=== PATIENT | male | born 1940 | race Caucasian/White ===

== ENCOUNTER 2016-03-23 16:14 | Emergency (ER) | payer MEDICARE, OTHER ==
[2016-03-23 16:40] LABS: BILIRUBIN,URINE NEGATIVE (NEGATIVE)
[2016-03-23 16:48] LABS: UA CHARGE (STRIP ONLY) YES; UR CULTURE IF IND NOT INDICATED
[2016-03-23] MEDS ORDERED: ONDANSETRON ODT 4 MG TABLET TL STA (17:11)
[2016-03-23] MEDS ORDERED: SODIUM CHLORIDE 0.9% 1,000 ML IV ONE (17:12)
[2016-03-23] MEDS ORDERED: ONDANSETRON 4 MG/2 ML VIAL ONE (17:16)
[2016-03-23] MEDS ORDERED: ONDANSETRON 4 MG/2 ML VIAL IVP STA (17:46)
[2016-03-23] MEDS ORDERED: DEXAMETHASONE 10 MG/ML VIAL PO STA (18:13)
[2016-03-23] MEDS ORDERED: AZITHROMYCIN 250 MG TABLET PO STA (18:14)
[2016-03-23 18:18] VITALS: BP 173/84
[2016-03-23] MEDS ORDERED: IBUPROFEN 800 MG TABLET PO STA (18:21)
[2016-03-23] MEDS ORDERED: IBUPROFEN 800 MG TABLET PO ONE (18:28)
[2016-03-23 18:39] LABS: BASOPHILS # (AUTO) 0.1 10^3/uL (0.0-0.1); BASOPHILS % (AUTO) 0.6 %; EOSINOPHILS # (AUTO) 0.2 10^3/uL (0.0-0.7); HCT - HEMATOCRIT 49.3 % (42.0-52.0); HGB - HEMOGLOBIN 16.8 g/dL (14.0-18.0); LYMPHOCYTES # (AUTO) 0.8 10^3/uL (1.5-3.5); LYMPHOCYTES % (AUTO) 7.8 %; MEAN CORPUSCULAR HEMOGLOBIN 30.8 pg (27.0-31.0); MEAN CORPUSCULAR HGB CONC 34.2 g/dL (32.0-36.0); MEAN CORPUSCULAR VOLUME 90.1 fL (80.0-94.0); MEAN PLATELET VOLUME 7.2 fL (7.4-11.4); MONOCYTES # (AUTO) 1.2 10^3/uL (0.0-1.0); MONOCYTES % (AUTO) 10.9 %; NEUTROPHILS # (AUTO) 8.3 10^3/uL (1.5-6.6); NEUTROPHILS % (AUTO) 78.7 %; RED BLOOD COUNT 5.47 10^6/uL (4.70-6.10); RED CELL DISTRIBUTION WIDTH 13.3 % (12.0-15.0); UNCORRECTED WHITE BLOOD COUNT 10.6 x10^3/uL; WHITE BLOOD COUNT 10.6 x10^3/uL (4.8-10.8)
--- NOTE | 2016-03-23 18:47 | ED Physician Documentation ---
PD HPI BACK PAIN - Stated complaint Stated Complaint: LOWER BACK PX - Chief complaint Chief Complaint: Abd Pain - History obtained from History obtained from: Patient - History of Present Illness Timing - onset: Yesterday Timing - details: Still present Location: Lower, Left Quality: Pain Associated symptoms: No: Fever, Incontinent of urine Similar symptoms before: Diagnosis (He reports a history of similar symptoms in the past with kidney stone. His last kidney stone was diagnosed less than 2 months ago.) Recently seen: Emergency Dept (The patient was seen in the emergency department here about 6 weeks ago with renal colic, and a CT scan revealed distal ureteral stone at that time.) - Treatment prior to arrival Treatment prior to arrival: The patient took a Percocet that was left over from his previous prescription. - Additional information Additional information: The patient is a 75-year-old male who presents with left flank pain that started yesterday morning, and has continued since that time, despite the use of Percocet. He reports associated nausea, without vomiting. He denies fever or dysuria. He has history of kidney stones, diagnosed in April 2015 and January 2016, and states the pain today feels similar to those episodes. He is also 8 months status post lumbar discectomy. Review of Systems Constitutional: denies: Fever Nose: denies: Congestion Cardiac: denies: Chest pain / pressure Respiratory: denies: Dyspnea, Cough GI: reports: Nausea. denies: Abdominal Pain, Vomiting : reports: Other (Left flank pain.). denies: Dysuria, Incontinent Skin: denies: Rash Musculoskeletal: reports: Back pain (left flank) Neurologic: denies: Focal weakness, Headache PD PAST MEDICAL HISTORY - Past Medical History Cardiovascular: Hypertension Respiratory: None Endocrine/Autoimmune: None GI: None : Kidney stones, Other HEENT: None Psych: None Musculoskeletal: Osteoarthritis Derm: None - Past Surgical History Past Surgical History: Yes General: Colonoscopy Ortho: Spine surgery - Present Medications Home Medications: Ambulatory Orders Medication Instructions Recorded Confirmed Allopurinol 300 mg PO DAILY 11/24/14 02/03/16 Atorvastatin [Lipitor] 40 mg PO DAILY 11/24/14 02/03/16 Cholecalciferol (Vitamin D3) 1,000 unit PO DAILY 11/24/14 02/03/16 [Vitamin D] Gluc/Anupam-MSM#1/Vit C/Artur/Bor 1 each PO DAILY 11/24/14 02/03/16 [Nazlajd-Dabxs-YUD Complex Cplt] Lisinopril 10 mg PO DAILY 11/24/14 02/03/16 Omeprazole 40 mg PO DAILY 11/24/14 02/03/16 Promethazine [Phenergan] 25 - 50 mg PO Q6H PRN #10 tab 02/03/16 oxyCODONE/ACET 5/325 [Percocet 5 1 - 2 tab PO Q4-6H PRN #20 tablet 02/03/16 mg/325 mg] Ciprofloxacin HCl [Cipro] 500 mg PO BID #10 tablet 03/23/16 Tamsulosin [Flomax] 0.4 mg PO DAILY #5 capsule 03/23/16 - Allergies Allergies/Adverse Reactions: Allergies Allergy/AdvReac Type Severity Reaction Status Date / Time No Known Drug Allergies Allergy Verified 03/23/16 16:26 - Social History Does the pt smoke?: No Smoking Status: Never smoker Does the pt drink ETOH?: Yes Does the pt have substance abuse?: No PD ED PE NORMAL - Vitals Vital signs reviewed: Yes (Initially hypertensive.) - General General: Alert and oriented X 3, Well developed/nourished - HEENT HEENT: Atraumatic, EOMI, Pharynx benign - Neck Neck: No JVD - Cardiac Cardiac: RRR, No murmur - Respiratory Respiratory: No respiratory distress, Clear bilaterally - Abdomen Abdomen: Soft, Non tender - Back Back: Other (Tenderness to percussion in the lower left flank.) - Derm Derm: No rash - Extremities Extremities: No edema, No calf tenderness / cord - Neuro Neuro: Alert and oriented X 3, No motor deficit, Normal speech Results - Vitals Vitals: Vital Signs - 24 hr 03/23/16 18:17 Temperature 38.8 C H Heart Rate 77 Respiratory 15 Rate Blood Pressure 173/84 H O2 Saturation 95 Oxygen O2 Source Room air - Labs Labs: Laboratory Tests 03/23/16 03/23/16 16:33 17:46 WBC 10.6 RBC 5.47 Hgb 16.8 Hct 49.3 MCV 90.1 MCH 30.8 MCHC 34.2 RDW 13.3 Plt Count 152 MPV 7.2 L Neut # 8.3 H Lymph # 0.8 L [place] # 1.2 H Eos # 0.2 Baso # 0.1 Absolute Nucleated RBC 0.01 Nucleated RBCs 0.0 Urine Color YELLOW Urine Clarity CLEAR Urine pH 5.0 Ur Specific [place] >=1.030 H Urine Protein TRACE Urine Glucose (UA) NEGATIVE Urine Ketones NEGATIVE Urine Occult Blood NEGATIVE Urine Nitrite NEGATIVE Urine Bilirubin NEGATIVE Urine Urobilinogen 0.2 (NORMAL) Ur Leukocyte Esterase NEGATIVE Ur Microscopic Review NOT INDICATED Urine Culture Comments NOT INDICATED - Rads (name of study) CT abd/pelvis w/o Radiology: Prelim report reviewed, EMP read contemporaneously, See rad report (1 ) Tiny left pleural effusion. 2) Mild right renal atrophy. 3) Left nephrolithiasis. 4) 1 mm stone distal left ureter within 1 cm of the left ureteral vesicle junction, causing mild to moderate obstruction. Thickened left ureteral uroepithelium raises the possibility of urinary tract infection as well. 5) Colonic diverticulosis.) PD MEDICAL DECISION MAKING - ED course Complexity details: reviewed old records, reviewed results, re-evaluated patient , considered differential, d/w patient, d/w family ED course: The patient's presentation is consistent with left renal colic, with a 1 mm left ureteral stone visualized on CT scan. The CT scan also reveals uroepithelial thickening, suggestive of urinary tract infection. While in the emergency department and the patient developed a fever to 38.8C. I checked a white blood cell count, which is normal at 10.6. His urinalysis is negative for pyuria or bacteriuria, but there is no other source found to account for the patient's development of fever. Treatment in the emergency department included administration of normal saline 1 L IV, Zofran 4 mg IV, ibuprofen 800 mg orally, and Cipro 500 mg orally. He is being discharged with prescriptions for Cipro and Flomax. He already has her cassette at home which he will use if needed for pain. I discussed with him and his the expected course of illness, outpatient treatment and follow-up, as well as potentially worrisome signs or symptoms that should prompt reevaluation in the emergency department. Departure - Departure Disposition: 01 Home, Self Care Clinical Impression: Renal colic on left side, Calculus of distal left ureter Urinary tract infection Qualifiers: Urinary tract infection type: site unspecified Hematuria presence: without hematuria Qualified Code(s): N39.0 - Urinary tract infection, site not specified Condition: Stable Instructions: ED Stone Renal W Colic Follow-Up: Neville Whitehead MD [Provider Admit Priv/Credential] - Prescriptions: Ciprofloxacin HCl [Cipro] 500 mg PO BID #10 tablet Tamsulosin [Flomax] 0.4 mg PO DAILY #5 capsule Comments: Drink plenty of fluids. Take Cipro twice daily as prescribed. Take Flomax daily as prescribed. Use ibuprofen, up to 800 mg 3 times daily for its anti-inflammatory effect. You can use Percocet as previously prescribed if needed for pain. Follow up with your primary physician within one week. Call to schedule an appointment. Return to the emergency department if you develop increasing pain, persistent vomiting, fever with shaking chills, or otherwise worsening symptoms. Discharge Date/Time: 03/23/16 19:34
--- NOTE | 2016-03-23 19:00 | CT Preliminary Report ---
Exam: CT Abdomen/Pelvis W/O IMPRESSION: 1. Tiny left pleural effusion. 2. Mild right renal atrophy . 3. Left nephrolithiasis. 4. 1 mm stone distal left ureter within 1 cm of the left ureter vesicle junction causing mild to mode rate obstruction. Thickened left ureteral uroepithelium raises the possibility of urinary tract infec tion as well. 5. Colonic diverticulosis . [facility] SITE ID: [id number]
[2016-03-23] MEDS ORDERED: CIPROFLOXACIN 250 MG TABLET PO STA (19:10)
--- NOTE | 2016-03-23 19:14 | CT Report ---
EXAM: CT ABDOMEN AND PELVIS EXAM DATE: 03/23/2016 06:04 PM. CLINICAL HISTORY: Left flank pain. History of renal stones. COMPARISONS: None. TECHNIQUE: Routine helical CT imaging was performed through the abdomen and pelvis. IV contrast: None . Enteric contrast: None. Reconstructions: Coronal and sagittal. In accordance with CT protocol optimization, one or more of the following dose reduction techniques w ere utilized for this exam: automated exposure control, adjustment of mA and/or KV based on patient s ize, or use of iterative reconstructive technique. FINDINGS: Lung Bases: Tiny left pleural effusion. Small hiatal hernia. Liver: Normal. No masses. Gallbladder/Bile Ducts: Unremarkable. Spleen: Normal. Pancreas: Normal. Adrenal Glands: Normal. Kidneys: Mild atrophy right kidney without hydronephrosis nor stones. Right ureter is tiny without st ones. Mild to moderate left hydronephrosis. Numerous 1 and 2 mm stones in the left calyceal system. Moderat e left peripelvic and left perirenal edema. Mild thickening and edema adjacent to the left Gerota's f ascia with edema extending inferiorly. Mild dilatation of the thickwalled left ureter with a moderate amount of left periureteral edema. 1 mm stone in the distal left ureter, 1 cm from the left ureterovesicle junction. Peritoneal Cavity/Bowel: Normal. No free fluid, free air or adenopathy. No masses or acute inflammato ry process. The appendix is well visualized and normal. Pelvic Organs: Normal. The bladder and visualized pelvic organs are within normal limits. Vasculature: No aneurysms or other significant abnormality. Bones: Remote surgery L5-S1. Other: None. IMPRESSION: 1. Tiny left pleural effusion. 2. Mild right renal atrophy. 3. Left nephrolithiasis. 4. 1 mm stone distal left ureter within 1 cm of the left ureterovesicle junction causing mild to mode rate obstruction. Thickened left ureteral uroepithelium raises the possibility of urinary tract infec tion as well. 5. Colonic diverticulosis. [facility] Referring Provider Line: [phone] SITE ID: [id number]
[2016-03-23] MEDS ORDERED: CIPROFLOXACIN 250 MG TABLET PO ONE (19:26)
== END 2016-03-23 19:34 | disposition home or self-care (01) ==
LOC: ED 16:14
DX: N20.2 Calculus of kidney with calculus of ureter (principal); N39.0 Urinary tract infection, site not specified; Z87.442 Personal history of urinary calculi
CPT/HCPCS: 36415; 74176; 81003; 85025; 96374; 99283; 99284; A9270; 81001; 87086

== ENCOUNTER 2017-10-16 14:06 | Outpatient (CLI) | payer MEDICARE, OTHER ==
[2017-10-16] MEDS ORDERED: IOPAMIDOL-300 100 ML VIAL ONE (14:26)
[2017-10-16 14:42] LABS: CALCIUM 8.9 mg/dL (8.5-10.3); CREATININE 1.1 mg/dL (0.6-1.2)
[2017-10-16] MEDS ORDERED: IOPAMIDOL-300 100 ML VIAL IVP ONE (15:27)
--- NOTE | 2017-10-16 17:42 | CT Report ---
Reason: HEADACHE X10 DAYS, FAMILY HX ANEURYSM. Procedure Date: 10/16/2017 Accession Number: [id number] / [id number] Procedure: CT - Head Angio CPT Code: FULL RESULT: EXAM: CT ANGIOGRAM HEAD. CT SCAN OF THE HEAD WITHOUT AND WITH CONTRAST. EXAM DATE: 10/16/2017 03:11 PM CLINICAL HISTORY: 77-year-old male. HEADACHE X10 DAYS, FAMILY HX ANEURYSM. COMPARISON: HEAD 07/15/2009 10:34 AM. TECHNIQUE: - CT Scan Head: Using a multidetector scanner, axial images were acquired from the foramen magnum to the skull vertex prior to and following contrast administration. - CT Angiogram: Using a multidetector scanner, high-resolution axial images were acquired from the skull base through vertex following rapid infusion of intravenous contrast. Reformats: Multiplanar MIP reformats were reconstructed. Nascet criteria used for stenosis measurement. IV Contrast: ISOVUE 300 80mL. In accordance with CT protocol optimization, one or more of the following dose reduction techniques were utilized for this exam: automated exposure control, adjustment of mA and/or KV based on patient size, or use of iterative reconstructive technique. FINDINGS: NON-CONTRAST HEAD: Parenchyma: No intraparenchymal hemorrhage. No evidence of mass, midline shift, or CT findings of infarction. William-white differentiation is distinct. Extraaxial Spaces: Normal for age. No subdural or epidural collections identified. Ventricles: Normal in size and position. Sinuses and orbits: Imaged paranasal sinuses, orbits, and mastoids show no significant abnormality. Bones: No evidence of fracture or calvarial defect. Other: None. POST-CONTRAST HEAD: No abnormal enhancement. CT ANGIOGRAM HEAD: Mild atherosclerosis right carotid siphon, no hemodynamically significant stenosis. Mild atherosclerosis left carotid siphon, no hemodynamically significant stenosis. The visualized distal vertebral arteries are unremarkable. The basilar artery is unremarkable. The left ASSISTANT LIBRARIAN is unremarkable. The right ASSISTANT LIBRARIAN is unremarkable. Posterior communicating arteries are not clearly visualized on either side, likely hypoplastic or aplastic. The right MCA is unremarkable. The A1 segment of the right CARLOS ALBERTO is diminutive but likely patent, hypoplastic. The ACAs are otherwise unremarkable bilaterally. The left MCA is unremarkable. DURAL VENOUS SINUSES AND MAJOR CENTRAL VEINS: Patent. IMPRESSION: 1. No evidence of acute intracranial abnormality on the noncontrast CT head. Specifically, no evidence of acute infarct, intracranial hemorrhage, mass effect, midline shift, or hydrocephalus. 2. No abnormal enhancement on the postcontrast CT head. 3. No CTA evidence of hemodynamically significant stenosis, large vessel occlusion, acute dissection, aneurysm, or vascular malformation within intracranial arteries. [facility]
== END 2017-10-16 14:07 | disposition home or self-care (01) ==
LOC: DI 14:06
PROVIDERS: ATTEND Nurse Practitioner Family
DX: R51 Headache (principal)
CPT/HCPCS: 36415; 70496; 80048; Q9967